=== PATIENT | female | born 1965 | race Caucasian/White ===

== ENCOUNTER 2022-02-12 22:51 | Emergency (ER) | payer MEDICARE, MEDICAID ==
[~2022-02-12] VITALS: Ht 154.9 cm; Wt 104.5 kg
[2022-02-12] MEDS ORDERED: ondansetron/PF 4mg/2ml inj IV ONE (23:20)
[2022-02-12] MEDS ORDERED: meclizine 12.5mg tablet PO ONE (23:25)
[2022-02-12] MEDS ORDERED: BEBTELOVIMAB 175 MG/2 ML VIAL IV ONE (23:30)
[2022-02-13] MEDS ORDERED: dextrose 50%-water 50ml dispensing syringe IV ONE (00:20)
--- NOTE | 2022-02-13 00:33 | NUR ---
Patient stated she was feeling sweaty and asked to have her blood sugar tested. Accucheck read 28/ 50% Dextrose adminstered emergently. Pt was alert, and oriented during episode. MD notified
[2022-02-13] MEDS ORDERED: dexamethasone sod phosphate 10mg/ml inj IV STA (00:52)
[2022-02-13 01:32] VITALS: BP 137/64
== END 2022-02-13 02:18 | disposition home or self-care (01) ==
LOC: ER 22:52
DX: U07.1 COVID-19 (principal); R50.9 Fever, unspecified; R11.2 Nausea with vomiting, unspecified; R51.9 Headache, unspecified; I10 Essential (primary) hypertension; K21.9 Gastro-esophageal reflux disease without esophagitis; Z87.440 Personal history of urinary (tract) infections; E11.9 Type 2 diabetes mellitus without complications; Z88.5 Allergy status to narcotic agent; Z91.040 Latex allergy status; Z88.8 Allergy status to other drugs, medicaments and biological substances
CPT/HCPCS: 82948; 96374; 96375; 99284; J1100; J3490; J8597; M0222; Q0222